=== PATIENT | male | born 1990 | race Caucasian/White ===

== ENCOUNTER 2019-07-12 21:28 | Emergency (ER) | payer SELFPAY ==
[2019-07-12 22:07] VITALS: BP 132/84; PULSE 80
--- NOTE | 2019-07-12 23:01 | EDM.PDOC ---
ED HPI GENERAL MEDICAL PROBLEM - General Chief Complaint: General Stated Complaint: SPOKE WITH NURSE Time Seen by Provider: 07/12/19 22:48 Source of Information: Reports: Patient History Limitations: Reports: No Limitations - History of Present Illness INITIAL COMMENTS - FREE TEXT/NARRATIVE: 29-year-old gentleman presents the emergency room chief complaint of having a bump in his left groin area. Patient states the area has gotten bigger over the last day. Patient has redness. Patient denies fever or chills. Onset: Today Duration: Day(s):, Getting Worse Location: Reports: Lower Extremity, Left Quality: Reports: Ache Severity: Mild Improves with: Reports: None Worsens with: Reports: None Associated Symptoms: Reports: No Other Symptoms Left Groin Pain Score (Numeric/FACES): 7 - Related Data Allergies Allergy/AdvReac Type Severity Reaction Status Date / Time No Known Allergies Allergy Verified 07/12/19 22:11 Home Meds: Home Meds . [No Known Home Meds] 07/26/14 [History] Past Medical History - Past Health History Medical/Surgical History: Denies Medical/Surgical History HEENT History: Reports: None Cardiovascular History: Reports: None Respiratory History: Reports: None Gastrointestinal History: Reports: None Genitourinary History: Reports: None Musculoskeletal History: Reports: None Neurological History: Reports: None Psychiatric History: Reports: None Endocrine/Metabolic History: Reports: None Hematologic History: Reports: None Immunologic History: Reports: None Oncologic (Cancer) History: Reports: None Dermatologic History: Reports: None - Infectious Disease History Infectious Disease History: Reports: None - Past Surgical History Head Surgeries/Procedures: Reports: None Cardiovascular Surgical History: Reports: None Male Surgical History: Reports: None Social & Family History - Tobacco Use Smoking Status *Q: Current Every Day Smoker Years of Tobacco use: 10 Packs/Tins Daily: 0.5 - Caffeine Use Caffeine Use: Reports: None - Recreational Drug Use Recreational Drug Use: No ED ROS GENERAL - Review of Systems Review Of Systems: See Below Constitutional: Reports: No Symptoms. Denies: Fever, Chills, Malaise, Weakness HEENT: Reports: No Symptoms Respiratory: Reports: No Symptoms Cardiovascular: Reports: No Symptoms Endocrine: Reports: No Symptoms GI/Abdominal: Reports: No Symptoms : Reports: No Symptoms Musculoskeletal: Reports: No Symptoms Skin: Reports: Lesions, Lumps Neurological: Reports: No Symptoms Psychiatric: Reports: No Symptoms Hematologic/Lymphatic: Reports: No Symptoms Immunologic: Reports: No Symptoms ED EXAM, GENERAL - Physical Exam Exam: See Below Free Text/Narrative:: 29-year-old male presents to the emergency room with swelling on the left groin. Patient has what appears to be an infected ingrown hair in the groin area. Area is not fluctuant it is red and hard. Time it is too early for an I&D and patient will be placed on antibiotics, warm compresses, follow-up in 48 hours. Exam Limited By: No Limitations General Appearance: Alert, WD/WN, No Apparent Distress Eye Exam: Bilateral Eye: Foreign Body Ear Exam: Bilateral Ear: Auricle Normal, Canal Normal, TM normal Nose: Normal Inspection, Normal Mucosa, No Blood Throat/Mouth: Normal Inspection, Normal Lips, Normal Teeth, Normal Gums, Normal Oropharynx, Normal Voice, No Airway Compromise Head: Atraumatic, Normocephalic Neck: Normal Inspection, Supple, Non-Tender, Full Range of Motion Respiratory/Chest: No Respiratory Distress, Lungs Clear, Normal Breath Sounds, No Accessory Muscle Use, Chest Non-Tender GI/Abdominal: Normal Bowel Sounds, Soft, Non-Tender, No Organomegaly, No Distention, No Abnormal Bruit, Other (Has redness in the groin area. Area is not fluctuant. Hard and tender) Rectal (Males) Exam: Deferred Extremities: Normal Inspection, Normal Range of Motion, Non-Tender, No Pedal Edema, Normal Capillary Refill Neurological: Alert, Oriented, CN II-XII Intact, Normal Cognition, Normal Gait, Normal Reflexes Psychiatric: Normal Affect, Normal Mood Skin Exam: Warm, Dry, Intact, Normal Color, No Rash Lymphatic: No Adenopathy Course - Vital Signs Last Recorded V/S: Last Vital Signs Temp 97.8 F 07/12/19 22:06 Pulse 80 07/12/19 22:06 Resp 18 07/12/19 22:06 BP 132/84 07/12/19 22:06 Pulse Ox 96 07/12/19 22:06 Departure - Departure Time of Disposition: 23:02 Disposition: Home, Self-Care 01 Condition: Good (Cellulitis of the groin) Clinical Impression: Abscess or cellulitis of groin - Discharge Information Referrals: PCP,None [Primary Care Provider] - Sepsis Event Note - Evaluation Sepsis Screening Result: No Definite Risk - Focused Exam Vital Signs: Vital Signs Temp Pulse Resp BP Pulse Ox 07/12/19 22:06 97.8 F 80 18 132/84 96 Date Exam was Performed: 07/12/19 Time Exam was Performed: 22:56
[2019-07-12] MEDS ORDERED: Cephalexin 500 MG Cap PO ONE (23:04)
== END 2019-07-12 23:15 | disposition home or self-care (01) ==
LOC: MW.ED 21:28
DX: L03.314 Cellulitis of groin (principal); L02.214 Cutaneous abscess of groin; F17.210 Nicotine dependence, cigarettes, uncomplicated
CPT/HCPCS: 99282; A9270; 99283

== ENCOUNTER 2019-10-14 20:37 | Emergency (ER) | payer OTHER ==
[2019-10-14] MEDS ORDERED: Tetracaine HCl/PF 0.5% 4 ML Bottle ONE (20:39)
[2019-10-14] MEDS ORDERED: Tetracaine HCl/PF 0.5% 4 ML Bottle EYEBOTH ONE (20:44)
[2019-10-14] MEDS ORDERED: Erythromycin Base 0.5% Ophth Oint 1 GM Tube EYEBOTH ONE (20:49)
[2019-10-14] MEDS ORDERED: Erythromycin Base 0.5% Ophth Oint 1 GM Tube ONE (20:52)
[2019-10-14] MEDS ORDERED: Diphtheria,Pertussis(Acell),Tetanus Vaccine 0.5 ML Syringe ONE (20:55)
[2019-10-14] MEDS ORDERED: Diphtheria,Pertussis(Acell),Tetanus Vaccine 0.5 ML Syringe IM ONE (20:57)
[2019-10-14 21:01] VITALS: BP 124/81; PULSE 70
--- NOTE | 2019-10-14 21:02 | EDM.PDOC ---
ED HPI GENERAL MEDICAL PROBLEM - General Chief Complaint: Eye Problems Stated Complaint: EYE PROBLEM Time Seen by Provider: 10/14/19 20:38 Source of Information: Reports: Patient History Limitations: Reports: No Limitations - History of Present Illness INITIAL COMMENTS - FREE TEXT/NARRATIVE: 29-year-old male presents to the emergency room with a chief both eyes burning and pain. Patient was watching his brother Fei patient has watering redness and pain to the eyes. Onset: Today Duration: Hour(s):, Getting Worse Location: Reports: Other (Bilateral eyes) Quality: Reports: Burning Severity: Moderate Improves with: Reports: None Worsens with: Reports: None Context: Reports: Trauma Associated Symptoms: Reports: No Other Symptoms bilateral eye Pain Score (Numeric/FACES): 8 - Related Data Allergies Allergy/AdvReac Type Severity Reaction Status Date / Time No Known Allergies Allergy Verified 10/14/19 21:01 Home Meds: Home Meds . [No Known Home Meds] 10/14/19 [History] Past Medical History - Past Health History Medical/Surgical History: Denies Medical/Surgical History HEENT History: Reports: None Cardiovascular History: Reports: None Respiratory History: Reports: None Gastrointestinal History: Reports: None Genitourinary History: Reports: None Musculoskeletal History: Reports: None Neurological History: Reports: None Psychiatric History: Reports: None Endocrine/Metabolic History: Reports: None Insulin Pump Model and Capacity Planner: None Hematologic History: Reports: None Immunologic History: Reports: None Oncologic (Cancer) History: Reports: None Dermatologic History: Reports: None - Infectious Disease History Infectious Disease History: Reports: None - Past Surgical History Head Surgeries/Procedures: Reports: None Cardiovascular Surgical History: Reports: None Male Surgical History: Reports: None Social & Family History - Family History Family Medical History: Noncontributory - Tobacco Use Smoking Status *Q: Current Every Day Smoker Years of Tobacco use: 6 Packs/Tins Daily: 0.5 - Caffeine Use Caffeine Use: Reports: None - Recreational Drug Use Recreational Drug Use: No ED ROS GENERAL - Review of Systems Review Of Systems: See Below Constitutional: Reports: No Symptoms HEENT: Reports: No Symptoms, Eye Pain, Vision Change Respiratory: Reports: No Symptoms Cardiovascular: Reports: No Symptoms Endocrine: Reports: No Symptoms GI/Abdominal: Reports: No Symptoms : Reports: No Symptoms Musculoskeletal: Reports: No Symptoms Skin: Reports: No Symptoms Neurological: Reports: No Symptoms Psychiatric: Reports: No Symptoms Hematologic/Lymphatic: Reports: No Symptoms Immunologic: Reports: No Symptoms ED EXAM GENERAL W FULL EYE - Physical Exam Exam: See Below Exam Limited By: No Limitations General Appearance: Alert, WD/WN, No Apparent Distress Eye Exam: Bilateral Eye: Conjunctival Injection (Patient has bilateral conjunctival injection and redness. Staining the eye patient appears to have welders keratitis) ED EYE w/ Add Procedure - Eye Procedure Alcaine Drops Administered: Yes (Applied to the eye.) Antibiotic Oinment/Drps Admin: Both Eyes (Erythromycin antibiotic ointment to both eyes. Patient left with tube.) Course - Vital Signs Last Recorded V/S: Last Vital Signs Temp 97.3 F 10/14/19 20:40 Pulse 82 10/14/19 20:40 Resp 18 10/14/19 20:40 BP 136/87 10/14/19 20:40 Pulse Ox 98 10/14/19 20:40 - Orders/Labs/Meds Meds: Medications Discontinued Medications Generic Name Dose Route Start Last Admin Trade Name Will PRN Reason Stop Dose Admin Erythromycin 1 gm 10/14/19 20:49 Erythromycin 0.5% Ophth Oint EYEBOTH 10/14/19 20:50 ONETIME ONE Erythromycin Confirm 10/14/19 20:52 Erythromycin 0.5% Ophth Oint Administered 10/14/19 20:53 Dose 1 gm .ROUTE .STK-MED ONE Tetracaine HCl Confirm 10/14/19 20:39 10/14/19 20:47 Tetracaine 0.5% Steri-Unit Madai Administered 10/14/19 20:40 Not Given Dose 4 ml .ROUTE .STK-MED ONE Tetracaine HCl 1 ml 10/14/19 20:44 10/14/19 20:47 Tetracaine 0.5% Steri-Unit Madai EYEBOTH 10/14/19 20:45 1 ml ASDIRECTED ONE Administration Departure - Departure Time of Disposition: 21:02 Disposition: Home, Self-Care 01 Condition: Good Clinical Impression: Welders' keratitis of both eyes - Discharge Information Instructions: Ultraviolet Keratitis, [id number] Referrals: PCP,None [Primary Care Provider] - Additional Instructions: Keep eyes patched till tomorrow morning. Repeat medication in patch the eye again the next day. Take Motrin for pain. Follow-up with the offset press assistant call for an appointMent. As soon as possible Sepsis Event Note - Evaluation Sepsis Screening Result: No Definite Risk - Focused Exam Vital Signs: Vital Signs Temp Pulse Resp BP Pulse Ox 10/14/19 20:40 97.3 F 82 18 136/87 98 Date Exam was Performed: 10/14/19 Time Exam was Performed: 20:56
[2019-10-14] MEDS ORDERED: Acetaminophen/HYDROcodone 325-7.5 MG Tab PO STA (21:04)
== END 2019-10-14 21:21 | disposition home or self-care (01) ==
LOC: MW.ED 20:37
DX: H16.133 Photokeratitis, bilateral (principal); F17.210 Nicotine dependence, cigarettes, uncomplicated; Z23 Encounter for immunization
CPT/HCPCS: 90471; 90715; 99283-25; A9270-GY

== ENCOUNTER 2020-08-25 23:28 | Emergency (ER) | payer OTHER ==
--- NOTE | 2020-08-25 23:30 | EDM.PDOC ---
ED HPI GENERAL MEDICAL PROBLEM - General Stated Complaint: BACK PAIN Time Seen by Provider: 08/25/20 23:29 - History of Present Illness INITIAL COMMENTS - FREE TEXT/NARRATIVE: 30-year-old male with history of years of chronic lower back issues since being in the [employer]. Tonight he was sweeping and drinking multiple beers. He then had sudden onset of severe lower back pain that dropped him to the ground. No injury from the fall. He called 911 was given medications by EMS as documented below. He denies leg weakness he denies urinary or bowel incontinence but endorses urinary frequency. He denies prior history of renal colic. Pain is now 5 out of 10 as long as he does not move but worsens significantly with any attempted movement. He states that he has had some degree of back pain for a long time he has some days that he struggles to even get out of bed but he knows that he needs to get out of bed as soon as he wakes up in order to move around and that if he does not do this his back tends to tighten and he denies any other medical problems. Worsen. Pt given 2 mg Dilaudid, as well as versed by EMS for severe back pain. This led to some sx improvement. However, pt con't to have difficulty ambulating due to the pain. lower back Pain Score (Numeric/FACES): 9 - Related Data Allergies Allergy/AdvReac Type Severity Reaction Status Date / Time No Known Allergies Allergy Verified 08/25/20 23:43 Home Meds: Home Meds Albuterol Sulfate [Proventil Hfa] gm IH 08/25/20 [History] Ibuprofen 600 mg PO TID 5 Days #15 tablet 08/26/20 [Rx] Past Medical History - Past Health History Medical/Surgical History: Denies Medical/Surgical History HEENT History: Reports: None Cardiovascular History: Reports: None Respiratory History: Reports: None Gastrointestinal History: Reports: None Genitourinary History: Reports: None Musculoskeletal History: Reports: None Neurological History: Reports: None Psychiatric History: Reports: None Endocrine/Metabolic History: Reports: None Insulin Pump Model and Slurry Worker: None Hematologic History: Reports: None Immunologic History: Reports: None Oncologic (Cancer) History: Reports: None Dermatologic History: Reports: None - Infectious Disease History Infectious Disease History: Reports: None - Past Surgical History Head Surgeries/Procedures: Reports: None Cardiovascular Surgical History: Reports: None Male Surgical History: Reports: None Social & Family History - Family History Family Medical History: No Pertinent Family History - Caffeine Use Caffeine Use: Reports: None ED ROS GENERAL - Review of Systems Review Of Systems: See Below Free Text/Narrative/Comment: General: No fever. Skin: No rash. Eyes: No vision problems. ENT: No sore throat. Neck: No neck stiffness. Respiratory: No shortness of breath. Cardiac: No chest pain. Gastrointestinal: No nausea, vomiting or abdominal pain. Urinary: Polyuria without hematuria or dysuria Musculoskeletal: Per HPI Neurologic: No headache. ED EXAM, GENERAL - Physical Exam Exam: See Below Free Text/Narrative:: General Appearance: No acute distress, appears comfortable HEENT: Normocephalic/atraumatic, sclera anicteric, mucous membranes moist Neck: Normal range of motion Chest and Lungs: Bilateral breath sounds, clear to auscultation Cardiovascular: Regular rate and rhythm, no murmur Abdomen: Soft, non-tender Back: Movement significantly limited by pain Musculoskeletal: No edema or tenderness Neurologic: Awake, alert, no obvious deficits, moving all extremities, strength intact in the bilateral lower extremities Psychiatric: Appropriate, cooperative Course - Vital Signs Last Recorded V/S: Last Vital Signs Temp 98.2 F 08/25/20 23:30 Pulse 95 08/25/20 23:30 Resp 16 08/25/20 23:30 BP 119/49 L 08/25/20 23:30 Pulse Ox 95 08/25/20 23:30 - Orders/Labs/Meds Orders: Active Orders 24 hr Category Date Time Status UA W/MICROSCOPIC [URIN] Stat Lab 08/25/20 23:46 Ordered Sodium Chloride 0.9% [Saline Flush] Med 08/25/20 23:45 Active 10 ml FLUSH ASDIRECTED PRN Sodium Chloride 0.9% [Saline Flush] Med 08/25/20 23:45 Active 2.5 ml FLUSH ASDIRECTED PRN Saline Lock Insert [OM.PC] Stat Oth 08/25/20 23:45 Ordered Medication Orders Sodium Chloride (Saline Flush) 10 ml FLUSH ASDIRECTED PRN PRN Reason: Keep Vein Open Last Admin: 08/26/20 00:04 Dose: 10 ml Documented by: ESTUARDO Sodium Chloride (Saline Flush) 2.5 ml FLUSH ASDIRECTED PRN PRN Reason: Keep Vein Open Last Admin: 08/26/20 00:04 Dose: 2.5 ml Documented by: [email or web address] Labs: Laboratory Tests 08/26/20 08/26/20 Range/Units 00:15 00:15 WBC 12.68 H (4.0-11.0) K/uL RBC 4.91 (4.50-5.90) M/uL Hgb 16.1 (13.0-17.0) g/dL Hct 44.0 (38.0-50.0) % MCV 89.6 (80.0-98.0) fL MCH 32.8 H (27.0-32.0) pg MCHC 36.6 (31.0-37.0) g/dL RDW Std Deviation 40.1 (28.0-62.0) fl RDW Coeff of Antonio 12 (11.0-15.0) % Plt Count 194 (150-400) K/uL MPV 9.50 (7.40-12.00) fL Neut % (Auto) 62.6 (48.0-80.0) % Lymph % (Auto) 27.1 (16.0-40.0) % [place] % (Auto) 6.6 (0.0-15.0) % Eos % (Auto) 3.3 (0.0-7.0) % Baso % (Auto) 0.4 (0.0-1.5) % Neut # (Auto) 7.9 H (1.4-5.7) K/uL Lymph # (Auto) 3.4 H (0.6-2.4) K/uL [place] # (Auto) 0.8 (0.0-0.8) K/uL Eos # (Auto) 0.4 (0.0-0.7) K/uL Baso # (Auto) 0.1 (0.0-0.1) K/uL Sodium 138 (136-148) mmol/L Potassium 3.9 (3.5-5.1) mmol/L Chloride 102 (98-107) mmol/L Carbon Dioxide 23.0 (21.0-32.0) mmol/L BUN 7 (7.0-18.0) mg/dL Creatinine 0.7 L (0.8-1.3) mg/dL Est Cr Clr Drug Dosing 158.40 mL/min Estimated GFR (MDRD) > 60.0 ml/min Glucose 91 (74-106) mg/dL Calcium 8.4 L (8.5-10.1) mg/dL Meds: Medications Generic Name Dose Route Start Last Admin Trade Name Freq PRN Reason Stop Dose Admin Sodium Chloride 10 ml 08/25/20 23:45 08/26/20 00:04 Saline Flush FLUSH 10 ml ASDIRECTED PRN Administration Keep Vein Open Sodium Chloride 2.5 ml 08/25/20 23:45 08/26/20 00:04 Saline Flush FLUSH 2.5 ml ASDIRECTED PRN Administration Keep Vein Open Discontinued Medications Generic Name Dose Route Start Last Admin Trade Name Freq PRN Reason Stop Dose Admin Fentanyl 25 mcg 08/26/20 01:18 Fentanyl IVPUSH 08/26/20 01:19 ONETIME ONE Ketorolac Tromethamine 15 mg 08/26/20 01:18 Toradol IVPUSH 08/26/20 01:19 ONETIME ONE Departure - Departure Time of Disposition: 01:20 Disposition: Home, Self-Care 01 Condition: Good Clinical Impression: Acute exacerbation of chronic low back pain - Discharge Information *PRESCRIPTION DRUG MONITORING PROGRAM REVIEWED*: Not Applicable *COPY OF PRESCRIPTION DRUG MONITORING REPORT IN PATIENT ADONAY: Not Applicable Prescriptions: Ibuprofen 600 mg PO TID 5 Days #15 tablet Instructions: Chronic Back Pain Additional Instructions: I think it is likely that you have a narrowing of one of the neural foramen in your lumbar spine or possibly a bulging disc. I encourage you to take the 5 days of ibuprofen to help with inflammation and follow-up with your primary care doctor. I think given how long her symptoms have been bothering you consideration for outpatient MRI to further assess your lumbar spine is certa inly reasonable. The following information is given to patients seen in the emergency department who are being discharged to home. This information is to outline your options for follow-up care. We provide all patients seen in our emergency department with a follow-up referral. The need for follow-up, as well as the timing and circumstances, are variable depending upon the specifics of your emergency department visit. If you don't have a primary care physician on staff, we will provide you with a referral. We always advise you to contact your personal physician following an emergency department visit to inform them of the circumstance of the visit and for follow-up with them and/or the need for any referrals to a consulting specialist. The emergency department will also refer you to a specialist when appropriate. This referral assures that you have the opportunity for follow-up care with a specialist. All of these measure are taken in an effort to provide you with optimal care, which includes your follow-up. Under all circumstances we always encourage you to contact your private physician who remains a resource for coordinating your care. When calling for follow-up care, please make the office aware that this follow-up is from your recent emergency room visit. If for any reason you are refused follow-up, please contact the [facility] Emergency Department at and asked to speak to the emergency department charge nurse. Sepsis Event Note (ED) - Focused Exam Vital Signs: Vital Signs Temp Pulse Resp BP Pulse Ox 08/25/20 23:30 98.2 F 95 16 119/49 L 95 - My Orders Last 24 Hours: My Active Orders 08/25/20 23:45 Sodium Chloride 0.9% [Saline Flush] 10 ml FLUSH ASDIRECTED PRN Sodium Chloride 0.9% [Saline Flush] 2.5 ml FLUSH ASDIRECTED PRN Saline Lock Insert [OM.PC] Stat 08/25/20 23:46 UA W/MICROSCOPIC [URIN] Stat - Assessment/Plan Last 24 Hours: My Active Orders 08/25/20 23:45 Sodium Chloride 0.9% [Saline Flush] 10 ml FLUSH ASDIRECTED PRN Sodium Chloride 0.9% [Saline Flush] 2.5 ml FLUSH ASDIRECTED PRN Saline Lock Insert [OM.PC] Stat 08/25/20 23:46 UA W/MICROSCOPIC [URIN] Stat Assessment:: 30-year-old male presenting with signs and symptoms most consistent with musculoskeletal back pain. However, multiple other etiologies considered as well there is nothing that suggest aortic dissection or AAA patient has no risk factors for these. Renal colic is certainly consideration and given this urinalysis and CT has been ordered to further assess. No findings of cord compression or cauda equina patient had no direct trauma that would indicate risk for fracture. 0120: Patient's evaluation does not reveal no other acute medical process. I do think this represents acute on chronic low back pain. Patient still reports persistent 7 out of 10 pain. Given the alcohol that he has had over the course of the evening I do not want to add any additional benzos. We will give a very small 25 mcg dose of fentanyl here as well as a second round of Toradol. Patient's is now at bedside. We discussed at length the [facility] I recommended a 5-day course of scheduled NSAIDs as well as consideration for outpatient MRI.
[2020-08-25] MEDS ORDERED: Sodium Chloride 0.9% 2.5 ML Syringe FLUSH PRN (23:45)
[2020-08-25] MEDS ORDERED: Sodium Chloride 0.9% 10 ML Syringe FLUSH PRN (23:45)
[2020-08-26 00:30] LABS: BLOOD UREA NITROGEN,BUN 7 mg/dL (7.0-18.0); CHLORIDE,CL 102 mmol/L (98-107); GLUCOSE RANDOM 91 mg/dL (74-106); POTASSIUM,K 3.9 mmol/L (3.5-5.1); SODIUM,NA 138 mmol/L (136-148)
--- NOTE | 2020-08-26 01:00 | CT ---
INDICATION: Sudden onset severe low back abdominal pain TECHNIQUE: CT Abdomen and pelvis without i.v. contrast. Coronal and sagittal reformats were obtained. COMPARISON: None FINDINGS: Lower chest: Unremarkable. Liver: Unremarkable. Spleen: Unremarkable. Pancreas: Unremarkable. Gallbladder: Unremarkable. Kidney: There is a punctate less than 1 mm density in the left lower pole which may be a tiny stone. No ureteral stones or obstruction seen. Adrenal: Unremarkable. Bowel: Unremarkable. The appendix is normal in appearance and size. Vascular: Unremarkable. Lymph: Unremarkable. Peritoneum: Unremarkable. No pneumoperitoneum is seen. No significant ascites is noted. Pelvis: Unremarkable. Soft tissue: Unremarkable. Bone: Unremarkable for age. IMPRESSION: 1. Unremarkable with no CT correlate for the patient`s symptoms seen. Please note that all CT scans at this facility use dose modulation, iterative reconstruction, and/or weight-based dosing when appropriate to reduce radiation dose to as low as reasonably achievable. Dictated by: Peterson Nathan MD @ 08/26/2020 00:59:29 (Electronically Signed)
[2020-08-26] MEDS ORDERED: fentaNYL 50 MCG/ML SDV IVPUSH ONE (01:18)
[2020-08-26] MEDS ORDERED: Ketorolac 30 MG/ML SDV IVPUSH ONE (01:18)
[2020-08-26 01:31] VITALS: BP 106/52; PULSE 85
== END 2020-08-26 01:37 | disposition home or self-care (01) ==
LOC: MW.ED 23:28
DX: M54.5 Low back pain (principal); G89.29 Other chronic pain; Z79.899 Other long term (current) drug therapy
CPT/HCPCS: 36415; 74176; 80048; 85025; 96374; 96375; 99284; J1885; J3010

== ENCOUNTER 2022-03-19 12:53 | Emergency (ER) | payer OTHER ==
[2022-03-19] MEDS: Orphenadrine 60 MG/2 ML Inj IM ONE ×2 (13:51→13:57)
[2022-03-19] MEDS: Ketorolac 60 MG/2 ML SDV IM ONE ×2 (13:51→13:57)
[2022-03-19 14:20] VITALS: BP 118/57; PULSE 93
== END 2022-03-19 14:19 | disposition home or self-care (01) ==
LOC: MW.ED 12:53
DX: G89.29 Other chronic pain (principal); M54.50 Low back pain, unspecified; J45.909 Unspecified asthma, uncomplicated; Z79.899 Other long term (current) drug therapy
CPT/HCPCS: 81003; 96372; 99283; J1885; J2360

== ENCOUNTER 2022-03-24 13:42 | Emergency (ER) | payer OTHER ==
[2022-03-24] MEDS ORDERED: Lidocaine 5% 700 MG Patch TOP ONE (15:04)
[2022-03-24] MEDS ORDERED: Acetaminophen 325 MG Tab PO ONE (15:04)
[2022-03-24] MEDS ORDERED: Ketorolac 30 MG/ML SDV IM ONE (15:04)
[2022-03-24] MEDS ORDERED: Cyclobenzaprine 10 MG Tab PO ONE (15:05)
[2022-03-24 18:40] VITALS: BP 117/72; PULSE 81
== END 2022-03-24 18:34 | disposition home or self-care (01) ==
LOC: MW.ED 13:42
DX: M54.59 Other low back pain (principal)
CPT/HCPCS: 51798; 96372; 99283; A9270; J1885

== ENCOUNTER 2023-02-28 12:24 | Emergency (ER) | payer OTHER ==
[2023-02-28] MEDS ORDERED: Ketorolac 30 MG/ML SDV IM ONE (12:41)
[2023-02-28 13:56] VITALS: BP 128/81; PULSE 79
== END 2023-02-28 13:54 | disposition home or self-care (01) ==
LOC: MW.ED 12:24
DX: M54.50 Low back pain, unspecified (principal); J45.909 Unspecified asthma, uncomplicated
CPT/HCPCS: 96372; 99283; J1885; J3360